=== PATIENT | male | born 1930 | race Caucasian/White ===

== ENCOUNTER → 2017-01-03 | Outpatient (CLI) | payer MEDICARE ==
[~2017-01-03] MED LIST: DARVOCET N 1001 TAB PO; NKHM
[2017-01-03 09:35] LABS: BASO # 0.1 10*3/uL (0.0-0.1); BASO % 0.4 % (0.0-1.0); EOS # 0.5 10*3/uL (0.0-0.4); EOS % 4.3 % (1.0-4.0); HEMATOCRIT 42.7 % (42.0-52.0); HEMOGLOBIN 14.4 g/dl (14.0-18.0); IG # 0.1 10*3/uL (0.0-0.1); LYMPH # 2.9 10*3/uL (1.3-4.4); MEAN CELL VOLUME 96.6 fl (80.0-94.0); MEAN CORPUSCULAR HGB 32.6 pg (27.0-31.0); MEAN CORPUSCULAR HGB CONC 33.7 g/dl (33.0-37.0); MEAN PLATELET VOLUME 9.3 fl (9.6-12.3); MONO # 0.9 10*3/uL (0.1-1.0); MONO % 7.4 % (3.0-9.0); NEUT # 7.7 10*3/uL (2.3-7.9); NEUT % 63.3 % (47.0-73.0); PLATELET COUNT AUTOMATED 210 10*3/uL (130-400); RED BLOOD COUNT 4.42 10*6/uL (4.50-5.90); RED CELL DISTRI WIDTH 13.8 % (0-14.5); WHITE BLOOD COUNT 12.2 10*3/uL (4.8-10.8)
[2017-01-03 09:59] LABS: ALBUMIN 3.8 gm/dl (3.1-4.5); BILIRUBIN, TOTAL 0.5 mg/dl (0.2-1.0); POTASSIUM 4.7 mmol/L (3.5-5.1); TOTAL PROTEIN 8.4 gm/dL (6.4-8.2)
== END | disposition home or self-care (01) ==
LOC: LAB 08:49 → CT 09:00
PROVIDERS: Urology
DX: Z12.5 Encounter for screening for malignant neoplasm of prostate (principal); I10 Essential (primary) hypertension; D40.0 Neoplasm of uncertain behavior of prostate; N40.1 Benign prostatic hyperplasia with lower urinary tract symptoms; R30.0 Dysuria; J43.9 Emphysema, unspecified; J47.9 Bronchiectasis, uncomplicated; M51.36 Other intervertebral disc degeneration, lumbar region; M47.896 Other spondylosis, lumbar region; N28.1 Cyst of kidney, acquired; K57.30 Diverticulosis of large intestine without perforation or abscess without bleeding; J84.9 Interstitial pulmonary disease, unspecified; Z98.890 Other specified postprocedural states; Z90.49 Acquired absence of other specified parts of digestive tract; Z95.1 Presence of aortocoronary bypass graft

== ENCOUNTER → 2017-01-16 | Outpatient (CLI) | payer MEDICARE | END | disposition home or self-care (01) | LOC: RAD 07:37 | DX: K44.9 Diaphragmatic hernia without obstruction or gangrene (principal); K21.9 Gastro-esophageal reflux disease without esophagitis ==

== ENCOUNTER → 2017-08-14 | Outpatient (CLI) | payer MEDICARE | END | disposition home or self-care (01) | LOC: WOUNDCARE 02:26 | DX: E11.622 Type 2 diabetes mellitus with other skin ulcer (principal); L97.222 Non-pressure chronic ulcer of left calf with fat layer exposed; I70.212 Atherosclerosis of native arteries of extremities with intermittent claudication, left leg; Z87.891 Personal history of nicotine dependence; Z95.1 Presence of aortocoronary bypass graft; Z86.73 Personal history of transient ischemic attack (TIA), and cerebral infarction without residual deficits ==

== ENCOUNTER 2018-12-30 19:18 | Emergency (ER) | payer MEDICARE ==
[~2018-12-30] VITALS: Ht 182.8 cm; Wt 111.1 kg
--- NOTE | ~2018-12-30 | EKG ---
[place], [place] ELECTROCARDIOGRAM REPORT NAME: DEISI FIGUEREDO SR UNIT #: [id number] ROOM: DOCTOR: EPIPHANY DRAFT REPORT BIRTHDATE: [birth year] [facility] Test Date: 2018-12-30 Test Time: 21:59:29 Pat Name: DEISI FIGUEREDO Department: ER Room: Gender: M Cottage Master: Robyn Crespo : 1930 Requested By: MAYELIN CAST Order Number: [id number] Reading MD: Brook Meeks MD Measurements Intervals [place] Rate: 71 P: 72 [place]: 36 QRS: -90 QRSD: 162 T: 95 QT: 480 QTc: 522 Interpretive Statements Atrial-sensed ventricular-paced rhythm No further analysis attempted due to paced rhythm D Electronically Signed On 01-02-2019 9:16:49 PDT by Brook Meeks MD CM:EKGRPT:ELECTROCARDIOGRAM REPORT [id number] MAYELIN HARE DRAFT REPORT MAYELIN CAST DO
--- NOTE | ~2018-12-30 | EKG ---
[place], [place] ELECTROCARDIOGRAM REPORT NAME: DEISI FIGUEREDO SR UNIT #: [id number] ROOM: DOCTOR: EPIPHDOMINIQUE DRAFT REPORT BIRTHDATE: [birth year] [facility] Test Date: 2018-12-30 Test Time: 19:20:18 Pat Name: DEISI FIGUEREDO Department: ER Room: Gender: M Crt: Robyn Crespo : 1930 Requested By: MAYELIN CAST Order Number: [id number] Reading MD: Brook Meeks MD Measurements Intervals [place] Rate: 76 P: [place]: QRS: 211 QRSD: 158 T: -69 QT: 500 QTc: 563 Interpretive Statements Afib/flut and V-paced complexes No further rhythm analysis attempted due to paced rhythm Nonspecific intraventricular conduction delay Borderline ST depression, inferior leads Electronically Signed On 01-02-2019 9:16:37 PDT by Brook Meeks MD CM:EKGRPT:ELECTROCARDIOGRAM REPORT 19 0916 MAYELIN HARE DRAFT REPORT MAYELIN CAST DO
[2018-12-30 19:47] LABS: BASO % 0.5 % (0.0-1.0); EOS # 0.3 10*3/uL (0.0-0.4); EOS % 3.1 % (1.0-4.0); HEMATOCRIT 41.7 % (42.0-52.0); LYMPH # 2.3 10*3/uL (1.3-4.4); MEAN CELL VOLUME 91.2 fl (80.0-94.0); MEAN CORPUSCULAR HGB 28.4 pg (27.0-31.0); MEAN CORPUSCULAR HGB CONC 31.2 g/dl (33.0-37.0); MEAN PLATELET VOLUME 9.4 fl (9.6-12.3); MONO # 0.7 10*3/uL (0.1-1.0); MONO % 8.4 % (3.0-9.0); NEUT # 5.5 10*3/uL (2.3-7.9); NEUT % 61.7 % (47.0-73.0); PLATELET COUNT AUTOMATED 184 10*3/uL (130-400); RED BLOOD COUNT 4.57 10*6/uL (4.50-5.90); RED CELL DISTRI WIDTH 17.2 % (0-14.5); WHITE BLOOD COUNT 8.8 10*3/uL (4.8-10.8)
[2018-12-30 19:57] LABS: ACT PARTIAL THROMBO TIME 25.6 SECONDS (20.8-31.5); INTERNATIONAL NORM RATIO 1.1 (2.0-3.5)
[2018-12-30 20:07] LABS: ALBUMIN 3.2 gm/dl (3.1-4.5); ALKALINE PHOSPHATASE 95 U/L (45-117); BUN 29 mg/dl (7-24); CHLORIDE 104 mmol/L (98-107); CREATININE 1.35 mg/dL (0.70-1.30); POTASSIUM 4.3 mmol/L (3.5-5.1); SGOT/AST 16 IU/L (3-35); SGPT/ALT 18 U/L (12-78); SODIUM 141 mmol/L (136-145); TOTAL PROTEIN 7.6 gm/dL (6.4-8.2)
[2018-12-30 20:08] LABS: ACETAMINOPHEN (TYLENOL) < 5.0 ug/ml (10-30); ETHYL ALCOHOL < 3.0 mg/dl (<3)
[2018-12-30 20:10] LABS: TROPONIN I 0.066 ng/ml (<0.045)
[2018-12-30 21:56] LABS: BILIRUBIN NEGATIVE (NEGATIVE); BLOOD NEGATIVE (NEGATIVE); CLARITY CLEAR (CLEAR); COLOR YELLOW (YELLOW); GLUCOSE NEGATIVE (NEGATIVE); KETONE NEGATIVE (NEGATIVE); LEUKO ESTERASE NEGATIVE (NEGATIVE); NITRITE NEGATIVE (NEGATIVE); PH 6.5 (5.0-9.0); SPECIFIC GRAVITY 1.015 (1.005-1.030); UROBILINOGEN 0.2 E.U./dl (0.2-1.0)
[2018-12-30 22:05] LABS: URINE AMPHETAMINES < 1000 (1000ng/ml); URINE BARBITURATES < 200 (200ng/ml); URINE BENZODIAZEPINES < 200 (200ng/ml); URINE CANNABINOIDS (THC) < 50 (50ng/ml); URINE COCAINE < 300 (300ng/ml); URINE METHADONE < 300 (300ng/ml); URINE OPIATES < 300 (300ng/ml); URINE PHENCYCLIDINE < 25 (25ng/ml)
[2018-12-30 22:08] LABS: EPITHELIAL CELLS 0-2
[2018-12-30 22:09] LABS: BACTERIA TRACE
[2018-12-30 22:10] VITALS: BP 171/85
== END 2018-12-30 23:37 | disposition home or self-care (01) ==
LOC: ED 19:18
PROVIDERS: Student in an Organized Health Care Education/Training Program
DX: R55 Syncope and collapse (principal); J44.9 Chronic obstructive pulmonary disease, unspecified; Z88.2 Allergy status to sulfonamides; Z88.5 Allergy status to narcotic agent; Z90.49 Acquired absence of other specified parts of digestive tract

== ENCOUNTER 2019-03-27 19:10 | Emergency (ER) | payer MEDICARE ==
[~2019-03-27] VITALS: Ht 182.8 cm; Wt 86.2 kg
--- NOTE | ~2019-03-27 | EKG ---
[place], [place] ELECTROCARDIOGRAM REPORT NAME: DEISI FIGUEREDO SR UNIT #: [id number] ROOM: DOCTOR: EPIPHANY DRAFT REPORT BIRTHDATE: [address] [facility] Test Date: 2019-03-27 Test Time: 19:14:36 Pat Name: DEISI FIGUEREDO Department: Room: Gender: [employer]: : 1930 Requested By: MAYELIN CAST Order Number: [id number] Reading MD: Brook Meeks MD Measurements Intervals [place] Rate: 88 P: 57 [place]: 152 QRS: 243 QRSD: 186 T: 113 QT: 404 QTc: 489 Interpretive Statements Atrial-sensed ventricular-paced rhythm No further analysis attempted due to paced rhythm Baseline wander in lead(s) V2 Compared to ECG 12/30/2018 21:59:29 No significant changes Electronically Signed On 04-01-2019 9:10:45 PDT by Brook Meeks MD CM:EKGRPT:ELECTROCARDIOGRAM REPORT 13 9 MAYELIN HARE DRAFT REPORT MAYELIN CAST DO
[2019-03-27 19:14] VITALS: BP 00/00; BP 47/14
== END 2019-03-27 19:35 | disposition expired ==
LOC: ED
DX: I46.9 Cardiac arrest, cause unspecified (principal); Z88.2 Allergy status to sulfonamides; Z88.5 Allergy status to narcotic agent; Z90.49 Acquired absence of other specified parts of digestive tract; Z95.1 Presence of aortocoronary bypass graft